=== PATIENT | male | born 1995 | race African-American/Black ===

== ENCOUNTER 2017-10-12 21:36 | Emergency (ER) | payer SELFPAY ==
[~2017-10-12] VITALS: Ht 172.7 cm; Wt 67.3 kg
[~2017-10-12 21:36] MED LIST: ALBU8HFA IH
[2017-10-12 23:28] VITALS: BP 119/56
== END 2017-10-12 23:28 | disposition home or self-care (01) ==
LOC: EMS 21:40
DX: M25.511 Pain in right shoulder (principal); V49.59XA Passenger injured in collision with other motor vehicles in traffic accident, initial encounter; Y93.89 Activity, other specified; Y92.89 Other specified places as the place of occurrence of the external cause; Y99.8 Other external cause status
CPT/HCPCS: 99284